=== PATIENT | male | born 1985 | race Caucasian/White ===

== ENCOUNTER → 2018-04-27 | Outpatient (CLI) | payer BC ==
[2018-04-27 10:55] LABS: Basophils # (A) 0.1 k/uL (0-0.2); Basophils % (A) 1 %; Eosinophils # (A) 0.2 k/uL (0-0.7); Eosinophils % (A) 4 %; HCT 44.8 % (39.0-53.0); HGB 13.8 gm/dL (13.0-17.5); Lymphocytes # (A) 1.6 k/uL (1.0-4.8); Lymphocytes % (A) 37 %; MCH 29.2 pg (25.0-35.0); MCHC 30.8 g/dL (31.0-37.0); MCV 94.6 fL (80.0-100.0); Mean Platelet Volume 6.8; Monocytes # (A) 0.3 k/uL (0-1.0); Monocytes % (A) 7 %; Neutrophils % (A) 48 %; Platelet Count 319 k/uL (150-450); RBC 4.74 m/uL (4.30-5.90); RDW 13.1 % (11.5-15.5); WBC 4.3 k/uL (3.8-10.6)
[2018-04-27 11:04] LABS: ALT 33 U/L (21-72); AST 23 U/L (17-59); Albumin 4.2 g/dL (3.5-5.0); Alkaline Phosphatase 57 U/L (38-126); Anion Gap 7 mmol/L; Blood Urea Nitrogen 14 mg/dL (9-20); Calcium 9.5 mg/dL (8.4-10.2); Carbon Dioxide 23 mmol/L (22-30); Chloride 112 mmol/L (98-107); Cholesterol 153 mg/dL (<200); Glucose 90 mg/dL (74-99); HDL Cholesterol 71 mg/dL (40-60); LDL Cholesterol,Calculated 68 mg/dL (0-99); Potassium 4.4 mmol/L (3.5-5.1); Sodium 142 mmol/L (137-145); Total Bilirubin 0.4 mg/dL (0.2-1.3); Total Protein 7.1 g/dL (6.3-8.2); Triglycerides 68 mg/dL (<150)
[2018-04-27 11:19] LABS: T4, Free (Free Thyroxine) 0.65 ng/dL (0.78-2.19)
== END | disposition home or self-care (01) ==
LOC: LABWHC1 10:09
PROVIDERS: ATTEND Family Medicine
DX: Z00.00 Encounter for general adult medical examination without abnormal findings (principal); E78.5 Hyperlipidemia, unspecified
CPT/HCPCS: 36415; 80053; 80061; 84439; 84443; 85025

== ENCOUNTER 2022-08-28 03:59 | Inpatient (IN) | payer BC ==
[2022-08-28] MEDS ORDERED: ONDANSETRON 4 MG/2 ML VIAL IVP STA (05:07)
[2022-08-28] MEDS ORDERED: SODIUM CHLORIDE 0.9% 1,000 ML IV ONE (05:07)
[2022-08-28] MEDS ORDERED: MORPHINE SULFATE 4 MG/ML SYRINGE IVP STA (05:07)
[2022-08-28 05:30] LABS: Basophils # (A) 0.1 k/uL (0-0.2); Basophils % (A) 2 %; Eosinophils # (A) 0.1 k/uL (0-0.7); Eosinophils % (A) 2 %; HCT 44.9 % (39.0-53.0); Lymphocytes # (A) 3.3 k/uL (1.0-4.8); Lymphocytes % (A) 46 %; MCH 30.5 pg (25.0-35.0); MCHC 33.4 g/dL (31.0-37.0); MCV 91.4 fL (80.0-100.0); Mean Platelet Volume 9.2; Monocytes # (A) 0.3 k/uL (0-1.0); Monocytes % (A) 5 %; Neutrophils # (A) 3.1 k/uL (1.3-7.7); Neutrophils % (A) 43 %; Platelet Count 315 k/uL (150-450); RBC 4.91 m/uL (4.30-5.90); RDW 12.9 % (11.5-15.5); WBC 7.2 k/uL (3.8-10.6)
[2022-08-28 05:33] LABS: Appearance,Urine Clear (Clear); Bacteria,Urine Rare /hpf; Bilirubin,Urine Negative (Negative); Blood,Urine Negative (Negative); Color,Urine Yellow; Glucose,Urine (UA) 1+ (Negative); Leukocyte Esterase,Urine Trace (Negative); Mucus,Urine Few /hpf; Nitrite,Urine Negative (Negative); Protein,Urine 1+ (Negative); RBC,Urine 1 /hpf (0-5); Specific Gravity,Urine 1.026 (1.001-1.035); Squamous Epithelial Cell,Urine <1 /hpf (0-4); Urobilinogen,Urine <2.0 mg/dL (<2.0); WBC,Urine 9 /hpf (0-5)
[2022-08-28 05:35] LABS: Amphetamine Screen,Urine Not Detected (NotDetected); Barbiturate Screen,Urine Not Detected (NotDetected); Benzodiazepines Screen,Urine Not Detected (NotDetected); Cocaine Screen,Urine Not Detected (NotDetected); Methadone Screen, Urine Not Detected (NotDetected); Opiate Screen,Urine Not Detected (NotDetected); Oxycodone Screen, Urine Not Detected (NotDetected); Phencyclidine Screen,Urine Not Detected (NotDetected); Tricyclic Antidepressant,Urine Not Detected (NotDetected); Urn Cannabinoid Scrn Not Detected (NotDetected)
[2022-08-28 05:38] LABS: Ketones,Urine 2+ (Negative)
--- NOTE | 2022-08-28 05:41 | CT ---
EXAMINATION TYPE: CT abdomen pelvis w con DATE OF EXAM: 08/28/2022 COMPARISON: None. HISTORY: severe abd pain into back. CT DLP: 707.5 mGycm, Automated Exposure Control for Dose Reduction was Utilized. CONTRAST: CT scan of the abdomen and pelvis is performed without oral and with IV Contrast, patient injected wi th 100 mL of Isovue 300. FINDINGS: LUNG BASES: No significant abnormality is appreciated. LIVER/GB: Visualized liver is heterogeneously hypodense. PANCREAS: No significant abnormality is seen. SPLEEN: No significant abnormality is seen. ADRENALS: No significant abnormality is seen. KIDNEYS: No significant abnormality is seen. BOWEL: Slightly suboptimal evaluation due to lack of enteric contrast. No suspicious dilatation of th e stomach or duodenal sweep. There are prominent fluid-filled small bowel loops in the pelvis. No gre ater than 3.0 cm dilatation is seen. Fecal material is seen in nondistended colon. There is low lying cecum into the right pelvis coronal image 34. Terminal ileum appears within normal limits seen best coronal image 31. There is focal dilated small bowel loop measuring up to 5.5 cm axial image 41. [place] images show moderate central mesenteric fat stranding/fluid and swirling of mesenteric vessels. T here is suspected focal closed loop obstruction with nondilated bowel along the right inferior aspect of the bowel loop coronal image 32. No free or mesenteric air. PROSTATE/SEMINAL VESICLES: No gross abnormality seen. LYMPH NODES: No greater than 1cm abdominal or pelvic lymph nodes are appreciated. OSSEOUS STRUCTURES: No significant abnormality is seen. OTHER: No significant additional abnormality is seen. IMPRESSION: There is single focal dilated small bowel loop with air-fluid level. There is suspected c losed loop obstruction related to internal hernia. No free air currently. Advise surgical consultatio n. Results discussed with ER physician shortly after exam was completed.
[2022-08-28 05:42] LABS: ALT 20 U/L (4-49); AST 31 U/L (17-59); African American GFR (CKD) >90 (>60 ml/min/1.73 sqM); Albumin 4.6 g/dL (3.5-5.0); Alcohol <10 mg/dL; Alkaline Phosphatase 83 U/L (38-126); Anion Gap 13 mmol/L; Blood Urea Nitrogen 12 mg/dL (9-20); Calcium 9.6 mg/dL (8.4-10.2); Carbon Dioxide 19 mmol/L (22-30); Chloride 106 mmol/L (98-107); Glucose 185 mg/dL (74-99); Lipase 144 U/L (23-300); Magnesium 1.9 mg/dL (1.6-2.3); Non-African American GFR(CKD) >90 (>60 ml/min/1.73 sqM); Potassium 3.9 mmol/L (3.5-5.1); Sodium 138 mmol/L (137-145); Total Bilirubin 0.6 mg/dL (0.2-1.3); Total Protein 7.9 g/dL (6.3-8.2)
[2022-08-28] MEDS ORDERED: NALOXONE 0.4 MG/ML 1 ML VIAL IV PRN (05:55)
--- NOTE | 2022-08-28 05:57 | ED ---
General Adult HPI - General Chief complaint: Abdominal Pain Stated complaint: Abd Pain Time Seen by Provider: 08/28/22 04:08 Source: patient, family Mode of arrival: ambulatory Limitations: no limitations - History of Present Illness Initial comments: This is a 37-year-old male with no past medical history presents emergency department for acute abdominal pain. The patient stated this abdominal pain him from sleep and he has had continued sharp, stabbing pains in the middle abdomen. The patient reported associated nausea and vomiting as well as chills. The patient denied any trauma to the area as well. The patient denied any previous abdominal pain or any other similar episodes. The patient was in distress secondary to abdominal pain however denied any other acute symptoms at this time. - Related Data Home Medications Medication Instructions Recorded Confirmed No Known Home Medications 04/28/14 04/28/14 Allergies Allergy/AdvReac Type Severity Reaction Status Date / Time Penicillins Allergy Unknown Verified 08/28/22 04:07 Childhood Review of Systems ROS Statement: Those systems with pertinent positive or pertinent negative responses have been documented in the HPI. ROS Other: All systems not noted in ROS Statement are negative. Past Medical History Past Medical History: No Reported History History of Any Multi-Drug Resistant Organisms: None Reported Past Surgical History: No Surgical Hx Reported Past Psychological History: No Psychological Hx Reported Past Alcohol Use History: Occasional Past Drug Use History: None Reported General Exam Limitations: no limitations General appearance: in distress (Secondary to abdominal pain) Head exam: Present: atraumatic, normocephalic Eye exam: Present: normal appearance, PERRL Pupils: Present: normal accommodation ENT exam: Present: normal exam, normal oropharynx, mucous membranes moist Neck exam: Present: normal inspection, full ROM Respiratory exam: Present: normal lung sounds bilaterally Cardiovascular Exam: Present: regular rate, normal rhythm, normal heart sounds GI/Abdominal exam: Present: tenderness (Significant tenderness noted to the mid abdomen), diminished bowel sounds Extremities exam: Present: normal inspection, full ROM, normal capillary refill Back exam: Present: normal inspection, full ROM Neurological exam: Present: alert, oriented X3, CN II-XII intact Psychiatric exam: Present: agitated Skin exam: Present: warm, dry Course Vital Signs 08/28/22 08/28/22 08/28/22 04:03 04:15 04:21 Temperature 97.6 F 98 F Pulse Rate 53 L 56 L 57 L Respiratory 100 H 30 H Rate Blood Pressure 101/20 160/84 O2 Sat by Pulse 100 98 100 Oximetry 08/28/22 08/28/22 04:34 05:51 Temperature Pulse Rate 52 L Respiratory 22 Rate Blood Pressure 124/71 104/84 O2 Sat by Pulse 99 Oximetry EKG Findings - EKG Comments: EKG Findings:: An EKG was obtained and was interpreted by myself per Pre-op preparations. EKG showed a rate of 57, P arrival 137, QRS duration 100 and QTC of 522. This EKG was read as sinus bradycardia with a prolonged QT interval. There were no ST segment elevations or depressions noted. Medical Decision Making - Medical Decision Making Was pt. sent in by a medical professional or institution? @No Did you speak to anyone other than the patient for history? @The patient's mother Did you review nursing and triage notes? @Nursing triage notes were reviewed Were old charts reviewed? @No Differential Diagnosis? @Small bowel obstruction, pancreatitis, appendicitis, diverticulitis, urinary tract infection, gastroneuritis EKG interpreted by me (3pts min.)? @Per above X-rays interpreted by me (1pt min.)? @ [none] CT interpreted by me (1pt min.)? @CT of the abdomen and pelvis was obtained and was interpreted by myself. CT showed single focal dilated small bowel loop with air fluid level. His is a suspected closed loop obstruction related to an internal hernia. There is no free air currently. The radiologist did advise a surgical consult at this time. U/S interpreted by me (1pt. min.)? @ [none] What testing was considered but not performed? (CT, X-rays, U/S, labs)? Why? @Initially an abdominal series x-ray was considered however due to the patient's severe pain, a CT abdomen and pelvis was obtained instead What meds were considered but not given? Why? @ [none] Did you discuss the management of the patient with other professionals? @Yes, general surgeon systems applications programming lead, was contacted regarding the patient and the CT abdomen and pelvis findings. She did recommend an EKG for preop preparation, NG tube placement and make the patient nothing by mouth for planned surgical intervention later today. Did you reconcile home meds? @ [none] Was smoking cessation discussed for >3mins.? @ [none] Was critical care preformed (if so, how long)? @ [none] Were there social determinants of health that impacted care today? How? (Homelessness, low income, unemployed, alcoholism, drug addiction, transportation, low edu. Level, literacy, decrease access to med. care, snf, rehab)? @None Was there de-escalation of care discussed even if they declined? (Discuss DNR or withdrawal of care, Hospice)? @No What co-morbidities impacted this encounter? (DM, HTN, Smoking, COPD, CAD, Cancer, CVA, Hep., AIDS, mental health diagnosis, sleep apnea, morbid obesity)? @None Was patient admitted / discharged? @The patient continued to remain stable. The patient was in moderate distress secondary to abdominal pain. Labs workup was obtained and was largely within a limits. Computed tomography scan however showed a closed loop bowel obstruction secondary to an internal hernia. Due to this finding, the general surgeon on- call, Dr. Lamb was contacted regarding the patient and did accept the patient for admission 0550. The patient was given multiple doses of pain medications in the emergency department as well as fluids. The patient also had an EKG performed at an NG tube placed. The patient was made nothing by mouth. The patient was told of this result and the plan for admission and surgical intervention and was agreeable. The patient was admitted in stable condition. Undiagnosed new problem with uncertain prognosis? @ [none] Drug Therapy requiring intensive monitoring for toxicity (Heparin, Nitro, Insulin, Cardizem)? @ [none] Were any procedures done? @ [none] Diagnosis/symptom? @Closed loop bowel obstruction secondary to an internal hernia Acute, or Chronic, or Acute on Chronic? @Acute Uncomplicated (without systemic symptoms) or Complicated (systemic symptoms)? @Complicated Side effects of treatment? @ [none] Exacerbation, Progression, or Severe Exacerbation] @ [no] Poses a threat to life or bodily function? @Yes - Lab Data Result diagrams: 08/28/22 04:20 08/28/22 04:20 Lab Results 08/28/22 08/28/22 08/28/22 Range/Units 04:20 04:20 05:14 WBC 7.2 (3.8-10.6) k/uL RBC 4.91 (4.30-5.90) m/uL Hgb 15.0 (13.0-17.5) gm/dL Hct 44.9 (39.0-53.0) % MCV 91.4 (80.0-100.0) fL MCH 30.5 (25.0-35.0) pg MCHC 33.4 (31.0-37.0) g/dL RDW 12.9 (11.5-15.5) % Plt Count 315 (150-450) k/uL MPV 9.2 Neutrophils % 43 % Lymphocytes % 46 % Monocytes % 5 % Eosinophils % 2 % Basophils % 2 % Neutrophils # 3.1 (1.3-7.7) k/uL Lymphocytes # 3.3 (1.0-4.8) k/uL Monocytes # 0.3 (0-1.0) k/uL Eosinophils # 0.1 (0-0.7) k/uL Basophils # 0.1 (0-0.2) k/uL Sodium 138 (137-145) mmol/L Potassium 3.9 (3.5-5.1) mmol/L Chloride 106 (98-107) mmol/L Carbon Dioxide 19 L (22-30) mmol/L Anion Gap 13 mmol/L BUN 12 (9-20) mg/dL Creatinine 0.92 (0.66-1.25) mg/dL Est GFR (CKD-EPI)AfAm >90 (>60 ml/min/1.73 sqM) Est GFR (CKD-EPI)NonAf >90 (>60 ml/min/1.73 sqM) Glucose 185 H (74-99) mg/dL Calcium 9.6 (8.4-10.2) mg/dL Magnesium 1.9 (1.6-2.3) mg/dL Total Bilirubin 0.6 (0.2-1.3) mg/dL AST 31 (17-59) U/L ALT 20 (4-49) U/L Alkaline Phosphatase 83 (38-126) U/L Total Protein 7.9 (6.3-8.2) g/dL Albumin 4.6 (3.5-5.0) g/dL Lipase 144 (23-300) U/L Urine Color Yellow Urine Appearance Clear (Clear) Urine pH 6.0 (5.0-8.0) Ur Specific [place] 1.026 (1.001-1.035) Urine Protein 1+ H (Negative) Urine Glucose (UA) 1+ H (Negative) Urine Ketones 2+ H (Negative) Urine Blood Negative (Negative) Urine Nitrite Negative (Negative) Urine Bilirubin Negative (Negative) Urine Urobilinogen <2.0 (<2.0) mg/dL Ur Leukocyte Esterase Trace H (Negative) Urine RBC 1 (0-5) /hpf Urine WBC 9 H (0-5) /hpf Ur Squamous Epith Cells <1 (0-4) /hpf Urine Bacteria Rare H (None) /hpf Urine Mucus Few H (None) /hpf Urine Opiates Screen (NotDetected) Ur Oxycodone Screen (NotDetected) Urine Methadone Screen (NotDetected) Ur Propoxyphene Screen (NotDetected) Ur Barbiturates Screen (NotDetected) U Tricyclic Antidepress (NotDetected) Ur Phencyclidine Scrn (NotDetected) Ur Amphetamines Screen (NotDetected) U Methamphetamines Scrn (NotDetected) U Benzodiazepines Scrn (NotDetected) Urine Cocaine Screen (NotDetected) U Marijuana (THC) Screen (NotDetected) Serum Alcohol <10 mg/dL 08/28/22 Range/Units 05:14 WBC (3.8-10.6) k/uL RBC (4.30-5.90) m/uL Hgb (13.0-17.5) gm/dL Hct (39.0-53.0) % MCV (80.0-100.0) fL MCH (25.0-35.0) pg MCHC (31.0-37.0) g/dL RDW (11.5-15.5) % Plt Count (150-450) k/uL MPV Neutrophils % % Lymphocytes % % Monocytes % % Eosinophils % % Basophils % % Neutrophils # (1.3-7.7) k/uL Lymphocytes # (1.0-4.8) k/uL Monocytes # (0-1.0) k/uL Eosinophils # (0-0.7) k/uL Basophils # (0-0.2) k/uL Sodium (137-145) mmol/L Potassium (3.5-5.1) mmol/L Chloride (98-107) mmol/L Carbon Dioxide (22-30) mmol/L Anion Gap mmol/L BUN (9-20) mg/dL Creatinine (0.66-1.25) mg/dL Est GFR (CKD-EPI)AfAm (>60 ml/min/1.73 sqM) Est GFR (CKD-EPI)NonAf (>60 ml/min/1.73 sqM) Glucose (74-99) mg/dL Calcium (8.4-10.2) mg/dL Magnesium (1.6-2.3) mg/dL Total Bilirubin (0.2-1.3) mg/dL AST (17-59) U/L ALT (4-49) U/L Alkaline Phosphatase (38-126) U/L Total Protein (6.3-8.2) g/dL Albumin (3.5-5.0) g/dL Lipase (23-300) U/L Urine Color Urine Appearance (Clear) Urine pH (5.0-8.0) Ur Specific [place] (1.001-1.035) Urine Protein (Negative) Urine Glucose (UA) (Negative) Urine Ketones (Negative) Urine Blood (Negative) Urine Nitrite (Negative) Urine Bilirubin (Negative) Urine Urobilinogen (<2.0) mg/dL Ur Leukocyte Esterase (Negative) Urine RBC (0-5) /hpf Urine WBC (0-5) /hpf Ur Squamous Epith Cells (0-4) /hpf Urine Bacteria (None) /hpf Urine Mucus (None) /hpf Urine Opiates Screen Not Detected (NotDetected) Ur Oxycodone Screen Not Detected (NotDetected) Urine Methadone Screen Not Detected (NotDetected) Ur Propoxyphene Screen Not Detected (NotDetected) Ur Barbiturates Screen Not Detected (NotDetected) U Tricyclic Antidepress Not Detected (NotDetected) Ur Phencyclidine Scrn Not Detected (NotDetected) Ur Amphetamines Screen Not Detected (NotDetected) U Methamphetamines Scrn Not Detected (NotDetected) U Benzodiazepines Scrn Not Detected (NotDetected) Urine Cocaine Screen Not Detected (NotDetected) U Marijuana (THC) Screen Not Detected (NotDetected) Serum Alcohol mg/dL Disposition Clinical Impression: Bowel obstruction Disposition: ADMITTED IP TO THIS HOSP Condition: Stable Is patient prescribed a controlled substance at d/c from ED?: No Time of Disposition: 05:50 Decision to Admit Reason: Admit from EC Decision Date: 08/28/22 Decision Time: 05:50
[2022-08-28] MEDS: SODIUM CHLORIDE 0.9% 1,000 ML IV SCH ×2 (06:01→19:44)
[2022-08-28] MEDS: KETOROLAC 15 MG/ML 1 ML VIAL IVP SCH ×3 (06:11→20:38)
[2022-08-28] MEDS ORDERED: fentaNYL (PF) 50 MCG/ML 2 ML AMP IVP STA (06:12)
[2022-08-28] MEDS: ACETAMINOPHEN IV (For NPO) 1,000 MG in EMPTY BAG 1 BAG IVPB SCH ×2 (06:24→19:59)
[2022-08-28] MEDS: HYDROmorphone 1 MG/ML 1 ML SYRINGE IVP PRN ×4 (07:40→20:36)
[2022-08-28] MEDS: PANTOPRAZOLE 40 MG/10 ML VIAL IV SCH (11:44)
[2022-08-28] MEDS: HEPARIN SODIUM,PORCINE/PF 5,000 UNIT/0.5 ML SYRINGE SQ SCH ×3 (11:45→21:43)
--- NOTE | 2022-08-28 13:29 | P.GSHP ---
History of Present Illness H&P Date: 08/28/22 Patient reports being generally physically fit. Developed acute onset abdominal pain over 12 hours ago. Pain tolerable. Pain primarily mid abdomen to right lower quadrant. CT reviewed. Presence of internal hernia with small bowel obstruction, closed loop. Surgical intervention described for robotic reduction of internal hernia. Possibility of small bowel resection reviewed. Possible open technique described. Discontinue NG tube. Inpatient hospitalization described. Past Medical History Past Medical History: No Reported History History of Any Multi-Drug Resistant Organisms: None Reported Past Surgical History: No Surgical Hx Reported Additional Past Surgical History / Comment(s): [place] teeth extractions. Additional Past Anesthesia/Blood Transfusion Reaction / Comment(s): Pt has never had general or spinal anesthesia. Smoking Status: Vaper - Past Family History Mother Family Medical History: No Reported History Father Family Medical History: No Reported History Medications and Allergies Home Medications Medication Instructions Recorded Confirmed Type No Known Home Medications 04/28/14 08/28/22 History Allergies Allergy/AdvReac Type Severity Reaction Status Date / Time Penicillins Allergy Unknown Verified 08/28/22 08:37 Childhood Surgical - Exam Vital Signs Temp Pulse Resp BP Pulse Ox 97.6 F 53 L 100 H 101/20 100 08/28/22 04:03 08/28/22 04:03 08/28/22 04:03 08/28/22 04:03 08/28/22 04:03 Results - Labs 08/28/22 04:20 08/28/22 04:20 Abnormal Lab Results - Last 24 Hours (Table) 08/28/22 08/28/22 Range/Units 04:20 05:14 Carbon Dioxide 19 L (22-30) mmol/L Glucose 185 H (74-99) mg/dL Urine Protein 1+ H (Negative) Urine Glucose (UA) 1+ H (Negative) Urine Ketones 2+ H (Negative) Ur Leukocyte Esterase Trace H (Negative) Urine WBC 9 H (0-5) /hpf Urine Bacteria Rare H (None) /hpf Urine Mucus Few H (None) /hpf Diabetes panel 08/28/22 Range/Units 04:20 Sodium 138 (137-145) mmol/L Potassium 3.9 (3.5-5.1) mmol/L Chloride 106 (98-107) mmol/L Carbon Dioxide 19 L (22-30) mmol/L BUN 12 (9-20) mg/dL Creatinine 0.92 (0.66-1.25) mg/dL Glucose 185 H (74-99) mg/dL Calcium 9.6 (8.4-10.2) mg/dL AST 31 (17-59) U/L ALT 20 (4-49) U/L Alkaline Phosphatase 83 (38-126) U/L Total Protein 7.9 (6.3-8.2) g/dL Albumin 4.6 (3.5-5.0) g/dL Calcium panel 08/28/22 Range/Units 04:20 Calcium 9.6 (8.4-10.2) mg/dL Albumin 4.6 (3.5-5.0) g/dL Pituitary panel 08/28/22 Range/Units 04:20 Sodium 138 (137-145) mmol/L Potassium 3.9 (3.5-5.1) mmol/L Chloride 106 (98-107) mmol/L Carbon Dioxide 19 L (22-30) mmol/L BUN 12 (9-20) mg/dL Creatinine 0.92 (0.66-1.25) mg/dL Glucose 185 H (74-99) mg/dL Calcium 9.6 (8.4-10.2) mg/dL Adrenal panel 08/28/22 Range/Units 04:20 Sodium 138 (137-145) mmol/L Potassium 3.9 (3.5-5.1) mmol/L Chloride 106 (98-107) mmol/L Carbon Dioxide 19 L (22-30) mmol/L BUN 12 (9-20) mg/dL Creatinine 0.92 (0.66-1.25) mg/dL Glucose 185 H (74-99) mg/dL Calcium 9.6 (8.4-10.2) mg/dL Total Bilirubin 0.6 (0.2-1.3) mg/dL AST 31 (17-59) U/L ALT 20 (4-49) U/L Alkaline Phosphatase 83 (38-126) U/L Total Protein 7.9 (6.3-8.2) g/dL Albumin 4.6 (3.5-5.0) g/dL
[2022-08-28] MEDS ORDERED: MIDAZOLAM 2 MG/2 ML VIAL ONE (21:42)
[2022-08-28] MEDS ORDERED: fentaNYL (PF) 50 MCG/ML 2 ML AMP ONE (21:42)
[2022-08-28] MEDS ORDERED: ALBUMIN HUMAN 5% (25gm) 500 ML VIAL IVPB ONE (21:42)
[2022-08-28] MEDS ORDERED: LIDOCAINE 2% INJ 20 MG/ML (2 ML VIAL) ONE (21:42)
[2022-08-28] MEDS ORDERED: PHENYLEPHRINE-0.9% NACL SYG 1,000 MCG/10 ML SYRINGE ONE (21:42)
[2022-08-28] MEDS ORDERED: SUCCINYLCHOLINE CHLORIDE 200 MG/10 ML VIAL IV ONE (21:42)
[2022-08-28] MEDS ORDERED: PROPOFOL 10 MG/ML 20 ML VIAL IV ONE (21:42)
[2022-08-28] MEDS ORDERED: KETAMINE 10 MG/ML 20 ML VIAL ONE (21:42)
[2022-08-28] MEDS ORDERED: NEOSTIGMINE 1 MG/ML 10 ML VIAL ONE (21:42)
[2022-08-28] MEDS ORDERED: ONDANSETRON 4 MG/2 ML VIAL ONE (21:42)
[2022-08-28] MEDS ORDERED: ROCURONIUM 10 MG/ML (5 ML VIAL) IV ONE (21:42)
[2022-08-28] MEDS ORDERED: LIDOCAINE 4% LTA KIT (4 ML) TOPICAL ONE (21:42)
[2022-08-28] MEDS ORDERED: GLYCOPYRROLATE 0.2 MG/ML 2 ML VIAL ONE (21:42)
[2022-08-28] MEDS ORDERED: SODIUM CHLORIDE 0.9% 50 ML with ceFAZolin 2,000 MG IV ONE ×2 (21:55)
[2022-08-28] MEDS ORDERED: LACTATED RINGERS 1,000 ML IV ONE ×2 (22:12→23:04)
[2022-08-28] MEDS ORDERED: BUPIVACAIN-EPI 0.25%-1:200,000 30 ML VIAL SQ ONE (22:12)
[2022-08-29] MEDS ORDERED: NALOXONE 0.4 MG/ML 1 ML VIAL IV PRN (00:14)
[2022-08-29] MEDS ORDERED: SODIUM CHLORIDE 0.9% 2,000 ML IV ONE ×2 (00:16→11:38)
[2022-08-29] MEDS ORDERED: ONDANSETRON 4 MG/2 ML VIAL IVP PRN (00:20)
--- NOTE | 2022-08-29 00:29 | P.OP ---
Date of Procedure: 08/29/22 Description of Procedure: SURGEON: PEPE CHANEL MD DISPLAY DECORATOR: NONE. PREOPERATIVE DIAGNOSIS: 1. Closed loop small bowel obstruction, abnormal computed tomography scan POSTOPERATIVE DIAGNOSIS: 1. Closed loop small bowel obstruction, abnormal computed tomography scan 2. Hemoperitoneum with peritonitis 3. Small bowel ischemia 4. Small bowel volvulus due to Meckel's diverticulum 5. Meckel's diverticulum necrosis OPERATION: 1. Diagnostic laparoscopy converted to open exploratory laparotomy for reduction of small bowel volvulus 2. Drainage of hemoperitoneum 2.5 L 3. Small bowel resection, Meckel's diverticulum 4. Peritoneal lavage 3 L normal saline 5. Application of 20 cm PREVENA incisional wound VAC system ANESTHESIA: General with epidural. ESTIMATED BLOOD LOSS: 50 mL SPECIMENS REMOVED: Aerobic and anaerobic culture peritoneal fluid CONDITION: Stable. DISPOSITION: To the Floor. COMPLICATIONS: None. OPERATIVE FINDINGS: 1. Diagnostic laparoscopy performed with necrotic bowel epigastrium and hemoperitoneum necessitating open technique 2. Small bowel ischemia 180 cm proximal to ileocecal valve 3. Necrosis of Meckel's diverticulum at 50 cm proximal to ileocecal valve 4. Dilated cystic Meckel's diverticulum 10 x 15 cm with necrosis resected for small bowel resection using 60 mm quevedo load 5. Small bowel volvulus along ileum mesentery reduced with incarceration due to large cystic Meckel's diverticulum causing internal hernia 6. Small bowel viable with peristalsis and perfused confirmed using indocyanine green INDICATIONS: The patient is a 37-year-old male who presents acutely with generalized abdominal pain rating to his back. Abnormal computed tomography scan demonstrated closed loop obstruction with internal hernia. Emergency surgical intervention was described with diagnostic laparoscopy possible lysis of adhesions including possible bowel resection and open technique. Benefits and risks of the procedures were discussed. Informed consent was obtained. DESCRIPTION: The patient was brought to the operating room. An epidural was placed per anesthesia. After general induction, a Kirk catheter was placed. The abdomen was prepped and draped in standard sterile fashion. Ioban draping was also placed. Prior to incision, a timeout protocol was confirmed with surgical team regarding patient's name including procedures to be performed. Preoperative medications were confirmed. A #10 blade was used to enter along the epigastrium and extended down to the pubis. Carefully the abdomen was entered using electro- Bovie cautery. Immediate foamy intra-abdominal purulence was aspirated from the abdomen over 100 mL. Fibrinous exudate was found throughout the small bowel especially of the upper abdomen. To further explore the abdomen, the abdomen was irrigated with 4 L of warm normal saline solution until the aspirant was clear. Aerobic and anaerobic cultures were obtained of the peritoneal fluid prior to irrigation and sent for cultures. The small bowel was decompressed. The cecum was redundant with the appendix intact and extended deep into her pelvis. The entire colon was full of soft stool with exception of hard stool in the rectum palpated. The gallbladder was distended. No internal hernia such as Avila defect or jejunojejunostomy defect were identified. Next, the Harris limb was followed to the gastrojejunal anastomosis were along the left lateral posterior aspect, 1 cm defect was found with enteric content emanating from the perforation. No signs of peritoneal studding was identified or sign of malignancy. The mucosa within the gastric pouch was found emanating through the ulcer as well. The ulcer was oversewn using 3-0 Polysorb with imbrication. A 2 layer closure was performed with serosa to serosa bites. A lesser omental patch was placed to reinforce the closure and incorporated into the suture line. The repair was submerged in normal saline. I went to the head of bed to perform intraoperative esophagogastroduodenoscopy. Olympus gastroscope was passed along the posterior oropharynx into the distal esophagus and into the gastric pouch with insufflation. The Harris limb was intubated at 60 cm from the gum line. Intraoperative endoscopy pictures were obtained confirming complete closure of the perforated gastrojejunal ulcer. No air bubbles or leak was identified confirming complete closure of the defect. I re-scrubbed into case. Additional 3 L normal saline was used to completely irrigate the abdomen until the aspirant was clear. #19 SARAH BETH drain was placed anterior to the repair of gastrojejunal anastomosis. The SARAH BETH drain exited via the left upper quadrant and sewn in using 2-0 nylon. A separate drain was place into the pelvis and exited via the right lower quadrant and also tacked using 2- 0 nylon. SARAH BETH bulbs were attached to negative suction. Hemostasis was excellent throughout the case. The abdomen was closed using double stranded 0 PDS. The skin was cleansed using dilute hydrogen peroxide. A 20-cm PREVENA incisional wound VAC dressing was placed with intact seal. At the end of the procedure, needle, sponge, and instrument count had been verified correct by the surgical instrument maker. The patient was sent to the postanesthesia care unit extubated and in stable condition. Intraoperative findings were discussed with her daughter Alana over the telephone including repair of her perforated ulcer, placement of drains, and extubation. She was overall pleased with level of care.
[2022-08-29] MEDS ORDERED: SCOPOLAMINE 1 MG/72 HR PATCH TRANSDERM ONE (00:30)
[2022-08-29] MEDS ORDERED: HYDROmorphone 0.5 MG/0.5 ML SYRINGE IVP ONE (00:34)
[2022-08-29] MEDS: metroNIDAZOLE-NS PMX 500 MG in SALINE 1 100ML.BAG IVPB SCH ×4 (01:26→18:18)
[2022-08-29] MEDS: KETOROLAC 15 MG/ML 1 ML VIAL IVP SCH ×4 (01:28→18:17)
[2022-08-29] MEDS: ACETAMINOPHEN IV (For NPO) 1,000 MG in EMPTY BAG 1 BAG IVPB SCH ×6 (01:37→23:29)
[2022-08-29] MEDS: SODIUM CHLORIDE 0.9% 1,000 ML IV SCH ×4 (01:48→18:35)
[2022-08-29] MEDS: LEVOFLOXACIN 500MG-D5W PMX 500 MG in DEXTROSE/WATER 1 100ML.BAG IVPB SCH (02:52)
[2022-08-29] MEDS: HYDROmorphone 1 MG/ML 1 ML SYRINGE IVP PRN (04:31)
[2022-08-29] MEDS: PANTOPRAZOLE 40 MG/10 ML VIAL IV SCH (08:42)
[2022-08-29] MEDS: HEPARIN SODIUM,PORCINE/PF 5,000 UNIT/0.5 ML SYRINGE SQ SCH ×2 (08:42→22:53)
[2022-08-29] MEDS: fentaNYL PCA 500 MCG/50 ML BAG IV PRN (09:56)
[2022-08-29 10:15] LABS: HCT 46.7 % (39.0-53.0); MCH 30.4 pg (25.0-35.0); MCHC 32.1 g/dL (31.0-37.0); MCV 94.7 fL (80.0-100.0); Mean Platelet Volume 8.2; Platelet Count 232 k/uL (150-450); RBC 4.94 m/uL (4.30-5.90); WBC 3.1 k/uL (3.8-10.6)
[2022-08-29 10:33] LABS: ALT 13 U/L (4-49); AST 23 U/L (17-59); African American GFR (CKD) >90 (>60 ml/min/1.73 sqM); Albumin 2.8 g/dL (3.5-5.0); Albumin/Globulin Ratio 1.2; Alkaline Phosphatase 29 U/L (38-126); Anion Gap 2 mmol/L; Blood Urea Nitrogen 17 mg/dL (9-20); Calcium 7.8 mg/dL (8.4-10.2); Carbon Dioxide 21 mmol/L (22-30); Chloride 114 mmol/L (98-107); Globulin 2.3 g/dL; Glucose 112 mg/dL (74-99); Non-African American GFR(CKD) >90 (>60 ml/min/1.73 sqM); Potassium 4.6 mmol/L (3.5-5.1); Sodium 137 mmol/L (137-145); Total Bilirubin 1.8 mg/dL (0.2-1.3); Total Protein 5.1 g/dL (6.3-8.2)
[2022-08-29 11:04] LABS: Band Neutrophils % 9 %; Eosinophils # (M) 0.03 k/uL (0-0.7); Lymphocytes # (M) 0.25 k/uL (1.0-4.8); Monocytes # (M) 0.31 k/uL (0-1.0); Neutrophils % (M) 72 %; Nucleated Red Blood Cells 0 /100 WBC (0-0); Total Cells Counted 100
--- NOTE | 2022-08-29 11:44 | P.PN ---
Subjective Progress Note Date: 08/29/22 CHIEF COMPLAINT: Closed loop obstruction due to Meckel's diverticulum HISTORY OF PRESENT ILLNESS: The patient is a 37-year-old male status post small bowel resection of Meckel's diverticulum with closed loop obstruction and small bowel infarction. Patient reports prior back pain and abdominal pain moderately improved. No reports of nausea vomiting. ROS: No reports of nausea and vomiting. No bowel movements. No fevers or chills. No new chest pain. No productive sputum. No flatus. PHYSICAL EXAM: VITAL SIGNS: Reviewed CONSTITUTIONAL: Well developed and in no acute distress. EYES: Conjuctivae without sclera icterus. Extraocular movements grossly intact. HEAD, EARS, NOSE, THROAT: Moist buccal mucosa. Head is atraumatic, normocephalic. Hears conversational speech. No nasal drainage. NG tube present minimal output. RESPIRATORY: Non-labored respirations and equal bilateral excursions. CARDIOVASCULAR: Palpable 2+ radial pulses. ABDOMEN: Incisional wound VAC dressing intact. MUSCULOSKELETAL: No gross deformity of the lower extremities noted. No clubbing. No cyanosis. SKIN: Good skin turgor. Well perfused. NEUROLOGIC: Cranial nerves II through XII grossly intact. No focal or lateralizing signs. PSYCH: Appropriate affect. Alert and oriented to person, place and time. CLINICAL LABS: Reviewed. CBC within normal limits. ASSESSMENT: 1. Small bowel infarction of Meckel's diverticulum due to close loop obstruction 2. Hemorrhagic ascites 2.5 L with peritonitis 3. Dehydration PLAN: 1. May have clear liquid diet with nasogastric tube 2. Ambulation encouraged. Heparin 5000 twice daily. 3. Incentive spirometer for pulmonary toilet 4. Discussion with patient and mother includes expected hospitalization for 7- 10 days pending bowel resumption of function 5. Patient and family discussed coverage this weekend provided by covering surgeon 6. Levofloxacin and Flagyl for peritonitis of the abdomen with cultures obtained 7. 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 IV fluid bolus due to severe third spacing of hemorrhagic ascites over 2.5 L with dehydration Objective - Vital Signs Vital signs: Vital Signs Temp 98.3 F 08/29/22 07:24 Pulse 68 08/29/22 07:24 Resp 18 08/29/22 07:24 BP 101/66 08/29/22 07:24 Pulse Ox 96 08/29/22 07:24 FiO2 Intake & Output 08/28/22 08/29/22 08/29/22 18:59 06:59 18:59 Intake Total 4340 Output Total 250 Balance 4090 Weight 301 kg 78.1 kg Intake: IV 1550 Intake, IV Titration 2790 Amount ACETAMINOPHEN IV (For NPO 200 ) 1,000 mg In Empty Bag 1 bag @ 400 mls/hr IVPB Q6HR [facility] Rx#:[id number] Levofloxacin 500Mg-D5w 100 Pmx 500 mg In Dextrose/ Water 1 100ml.bag @ 100 mls/hr IVPB Q24H [facility] Rx#: [id number] Sodium Chloride 0.9% 1, 390 000 ml @ 130 mls/hr IV . Q7H42M [facility] Rx#:[id number] Sodium Chloride 0.9% 2, 2000 000 ml @ 999 mls/hr IV . Q2H1M [facility] Rx#:[id number] metroNIDAZOLE-NS PMX 500 100 mg In Saline 1 100ml.bag @ 100 mls/hr IVPB Q6HR [facility] Rx#:[id number] Output: Urine 200 Estimated Blood Loss 50 Other: Voiding Method Indwelling Catheter - Labs CBC & Chem 7: 08/29/22 09:58 08/29/22 09:58 Labs: Abnormal Lab Results - Last 24 Hours (Table) 08/29/22 08/29/22 Range/Units 09:58 09:58 WBC 3.1 L (3.8-10.6) k/uL Lymphocytes # (Manual) 0.25 L (1.0-4.8) k/uL Chloride 114 H (98-107) mmol/L Carbon Dioxide 21 L (22-30) mmol/L Glucose 112 H (74-99) mg/dL Calcium 7.8 L (8.4-10.2) mg/dL Total Bilirubin 1.8 H (0.2-1.3) mg/dL Alkaline Phosphatase 29 L (38-126) U/L Total Protein 5.1 L (6.3-8.2) g/dL Albumin 2.8 L (3.5-5.0) g/dL
[2022-08-29] MEDS: fentaNYL PCA 500 MCG/50 ML BAG IV SCH ×2 (12:03→22:08)
--- NOTE | 2022-08-29 21:44 | CONS ---
CONSULTATION REASON FOR CONSULTATION: Advice regarding abnormal labs and other medical issues requested by surgery. HISTORY OF PRESENT ILLNESS: This is a 37-year-old gentleman with a past medical history of no significant medical issues, admitted with abdominal symptoms. The patient underwent a diagnostic laparoscopy converted to an open exploratory laparotomy and reduction of small-bowel volvulus by Dr. Lamb. A Meckel's diverticulum was suspected. There is no history of any fever, rigors, or chills. The patient's white count is found to be 3.1. PAST MEDICAL HISTORY: History of wisdom tooth extraction. No history of any cardiorespiratory illness. HOME MEDICATIONS: Reviewed, none. ALLERGIES: Penicillin. FAMILY HISTORY: No history of heart disease or strokes in the family. SOCIAL HISTORY: History of vaping. REVIEW OF SYSTEMS: A 14-point review is negative as mentioned earlier. PHYSICAL EXAMINATION: VITAL SIGNS: Pulse is 68, blood pressure 101/60, respirations 18. HEENT: Conjunctivae normal. NECK: No JVD. CARDIOVASCULAR: S1, S2 muffled. RESPIRATIONS: Breath sounds diffuse. ABDOMEN: Soft status post surgery. LEGS: No edema. NERVOUS SYSTEM: No focal deficits. SKIN: No ulcer, rash, bleeding. JOINTS: No active deforming arthropathy. LABS: WBC 3.1, sodium 137, potassium 4.7. ASSESSMENT: 1. Status post exploratory laparotomy for reduction of small-bowel volvulus and Meckel's diverticulum. 2. Mild leukopenia. 3. History of vaping. RECOMMENDATIONS: This is a 37-year-old gentleman who presented after surgery. At this time, the patient is medically stable. I would recommend to continue with DVT prophylaxis, incentive spirometry, proton pump inhibitors. Repeat labs. The followup of mild leukopenia can be arranged outpatient. Otherwise, we will follow the patient closely. Thank you for letting us participate in this patient's care. MMODL / IJN: [id number] /
[2022-08-30] MEDS: KETOROLAC 15 MG/ML 1 ML VIAL IVP SCH (02:34)
[2022-08-30] MEDS: metroNIDAZOLE-NS PMX 500 MG in SALINE 1 100ML.BAG IVPB SCH ×4 (02:37→17:34)
[2022-08-30] MEDS: LEVOFLOXACIN 500MG-D5W PMX 500 MG in DEXTROSE/WATER 1 100ML.BAG IVPB SCH (04:36)
[2022-08-30] MEDS: ACETAMINOPHEN IV (For NPO) 1,000 MG in EMPTY BAG 1 BAG IVPB SCH ×4 (06:06→22:18)
[2022-08-30] MEDS: SODIUM CHLORIDE 0.9% 1,000 ML IV SCH ×2 (08:38→17:34)
[2022-08-30] MEDS: HEPARIN SODIUM,PORCINE/PF 5,000 UNIT/0.5 ML SYRINGE SQ SCH ×2 (08:38→22:21)
[2022-08-30] MEDS: fentaNYL PCA 500 MCG/50 ML BAG IV SCH (09:41)
[2022-08-30] MEDS: PANTOPRAZOLE 40 MG/10 ML VIAL IV SCH (09:50)
[2022-08-30 11:23] LABS: Basophils # (A) 0.04 X 10*3/uL (0.00-0.10); Basophils % (A) 0.8 %; Eosinophils # (A) 0 X 10*3/uL (0.04-0.35); Eosinophils % (A) 0 %; HCT 38.8 % (39.6-50.0); HGB 12.3 g/dL (13.0-17.0); Immature Grans, Automated 0.4 %; Lymphocytes # (A) 0.37 X 10*3/uL (0.90-5.00); Lymphocytes % (A) 7.5 %; MCH 30.2 pg (27.0-32.0); MCHC 31.7 g/dL (32.0-37.0); MCV 95.3 fL (80.0-97.0); Mean Platelet Volume 10.9 fL (9.5-12.2); Monocytes # (A) 0.51 X 10*3/uL (0.20-1.00); Monocytes % (A) 10.3 %; NRBC Per 100 WBC 0 /100 WBCS (0.0-0.0); Neutrophils # (A) 3.99 X 10*3/uL (1.80-7.70); Platelet Count 221 X 10*3/uL (140-440); RBC 4.07 X 10*6/uL (4.40-5.60); RBC Morphology NORMAL; WBC 4.93 X 10*3/uL (4.50-10.00)
[2022-08-30 11:41] LABS: African American GFR (CKD) 121.6 (60.0-200.0); Anion Gap 8.4 mmol/L (10.00-18.00); BUN/Creat Ratio 16.81 Ratio (12.00-20.00); Blood Urea Nitrogen 15.4 mg/dL (9.0-27.0); Calcium 7.9 mg/dL (8.7-10.3); Carbon Dioxide 19.5 mmol/L (20.0-27.5); Potassium 4.1 mmol/L (3.5-5.5)
--- NOTE | 2022-08-30 12:48 | P.PN ---
Progress Note - Text Progress Note Date: 08/30/22 The patient is sitting in a chair. He has minimal pain. He has had no significant bowel function. On exam vital signs are stable. Abdomen soft. Incisions clean dry intact. Status post small bowel resection for closed loop bowel obstruction. Patient will continue NG tube. We will start diet once his bowel function has returned.
[2022-08-30] MEDS ORDERED: SODIUM CHLORIDE 0.9% 1,000 ML IV ONE (15:41)
[2022-08-31] MEDS: metroNIDAZOLE-NS PMX 500 MG in SALINE 1 100ML.BAG IVPB SCH ×5 (00:53→23:55)
[2022-08-31] MEDS: LEVOFLOXACIN 500MG-D5W PMX 500 MG in DEXTROSE/WATER 1 100ML.BAG IVPB SCH (02:26)
[2022-08-31] MEDS: fentaNYL PCA 500 MCG/50 ML BAG IV PRN (04:00)
[2022-08-31] MEDS: ACETAMINOPHEN IV (For NPO) 1,000 MG in EMPTY BAG 1 BAG IVPB SCH ×4 (04:14→20:41)
[2022-08-31] MEDS: PANTOPRAZOLE 40 MG/10 ML VIAL IV SCH (09:07)
[2022-08-31] MEDS: HEPARIN SODIUM,PORCINE/PF 5,000 UNIT/0.5 ML SYRINGE SQ SCH ×2 (09:08→20:41)
[2022-08-31 09:38] LABS: African American GFR (CKD) 130.4 (60.0-200.0); Albumin 2.8 g/dL (3.8-4.9); Albumin/Globulin Ratio 1.56 (1.60-3.17); Anion Gap 6.2 mmol/L (10.00-18.00); BUN/Creat Ratio 21.75 Ratio (12.00-20.00); Blood Urea Nitrogen 17.4 mg/dL (9.0-27.0); Carbon Dioxide 21.8 mmol/L (20.0-27.5); Globulin 1.8 g/dL (1.6-3.3); Non-African American GFR(CKD) 112.5 (60.0-200.0); Potassium 4.2 mmol/L (3.5-5.5); Total Bilirubin 0.4 mg/dL (0.30-1.20); Total Protein 4.6 g/dL (6.2-8.2)
[2022-08-31 09:39] LABS: HCT 34.3 % (39.6-50.0); HGB 11.2 g/dL (13.0-17.0); MCHC 32.7 g/dL (32.0-37.0); Mean Platelet Volume 10.6 fL (9.5-12.2); NRBC Per 100 WBC 0 /100 WBCS (0.0-0.0); Platelet Count 189 X 10*3/uL (140-440); RBC 3.73 X 10*6/uL (4.40-5.60); RDW 14.1 % (11.5-14.5); WBC 4.62 X 10*3/uL (4.50-10.00)
[2022-08-31 10:23] LABS: Basophils # (A) 0.01 X 10*3/uL (0.00-0.10); Basophils % (A) 0.2 %; Eosinophils # (A) 0.04 X 10*3/uL (0.04-0.35); Eosinophils % (A) 0.9 %; Immature Grans, Automated 0.4 %; Lymphocytes # (A) 0.57 X 10*3/uL (0.90-5.00); Lymphocytes % (A) 12.3 %; Monocytes % (A) 10.8 %; Neutrophils # (A) 3.48 X 10*3/uL (1.80-7.70); Neutrophils % (A) 75.4 %; RBC Morphology NORMAL
--- NOTE | 2022-08-31 12:10 | P.PN ---
Progress Note - Text Progress Note Date: 08/31/22 The patient has had flatus. On exam his vital signs are stable. Abdomen soft. Incisions clean and intact. Status post small bowel resection due to closed loop internal hernia. Patient lives nasogastric tube removed. We'll start full liquid diet.
[2022-08-31] MEDS: SODIUM CHLORIDE 0.9% 1,000 ML IV SCH (12:53)
--- NOTE | 2022-08-31 16:58 | PN ---
PROGRESS NOTE DATE OF SERVICE: 08/30/2022 SUBJECTIVE: This is a 37-year-old gentleman, who was admitted after exploratory laparotomy, had some mild leukopenia. No chest pain. No palpitations. No fever. OBJECTIVE: VITAL SIGNS: Pulse 59, blood pressure 110/68, respirations 17. CHEST: Clear to auscultation. CARDIOVASCULAR: S1 and S2. ABDOMEN: Soft. Status post surgery. LABORATORY DATA: Reviewed. Hemoglobin 12.3. The rest of the labs are reviewed. ASSESSMENT: 1. Status post exploratory laparotomy and reduction of the small bowel volvulus and Meckel's diverticulum. 2. History of vaping. RECOMMENDATIONS: Recommend to continue current medications. Recommend incentive spirometry and DVT prophylaxis. Repeat labs. Closely follow with Surgery. Further recommendations to follow. Symptomatic treatment. MMODL / IJN: [id number] /
[2022-08-31] MEDS: fentaNYL PCA 500 MCG/50 ML BAG IV SCH (17:40)
[2022-09-01] MEDS: LEVOFLOXACIN 500MG-D5W PMX 500 MG in DEXTROSE/WATER 1 100ML.BAG IVPB SCH (01:17)
[2022-09-01] MEDS: SODIUM CHLORIDE 0.9% 1,000 ML IV SCH ×5 (02:10→16:34)
[2022-09-01] MEDS: ACETAMINOPHEN IV (For NPO) 1,000 MG in EMPTY BAG 1 BAG IVPB SCH ×4 (03:26→20:19)
--- NOTE | 2022-09-01 03:34 | PN ---
PROGRESS NOTE DATE OF SERVICE: 08/31/2022 SUBJECTIVE: This is a 37-year-old gentleman who was admitted after abdominal surgery for small bowel volvulus as well as Meckel diverticulum. He is complaining of severe abdominal pain. No chest pain. No palpitations. No fever. OBJECTIVE: VITAL SIGNS: Pulse is 76, blood pressure 119/70, respirations 16. HEENT: Conjunctivae normal. CARDIOVASCULAR: S1 and S2 present. RESPIRATIONS: Breath sounds diminished. ABDOMEN: Soft. Status post surgery. LEGS: No edema. NERVOUS SYSTEM: No focal deficit. LABORATORY DATA: WBC 4.2, hemoglobin 11.2. Rest of the labs are noted. ASSESSMENT: 1. Status post exploratory laparotomy for reduction of small bowel volvulus and Meckel diverticulum. 2. Postoperative pain. 3. Leukopenia. 4. History of vaping. RECOMMENDATIONS: Continue current medications, symptomatic treatment, otherwise incentive spirometry. DVT prophylaxis. Further recommendations to follow. See orders for details. MMODL / IJN: [id number] /
[2022-09-01] MEDS: metroNIDAZOLE-NS PMX 500 MG in SALINE 1 100ML.BAG IVPB SCH ×3 (05:09→17:54)
[2022-09-01] MEDS: PANTOPRAZOLE 40 MG/10 ML VIAL IV SCH (08:28)
[2022-09-01] MEDS: HEPARIN SODIUM,PORCINE/PF 5,000 UNIT/0.5 ML SYRINGE SQ SCH ×2 (08:28→20:18)
[2022-09-01] MEDS: fentaNYL PCA 500 MCG/50 ML BAG IV SCH (08:29)
[2022-09-01 09:09] LABS: Basophils # (A) 0.02 X 10*3/uL (0.00-0.10); Basophils % (A) 0.3 %; Eosinophils # (A) 0.07 X 10*3/uL (0.04-0.35); Eosinophils % (A) 1.2 %; HCT 35.2 % (39.6-50.0); HGB 11.1 g/dL (13.0-17.0); Immature Grans, Automated 0.9 %; Lymphocytes # (A) 0.73 X 10*3/uL (0.90-5.00); Lymphocytes % (A) 12.7 %; MCH 29.9 pg (27.0-32.0); MCHC 31.5 g/dL (32.0-37.0); MCV 94.9 fL (80.0-97.0); Mean Platelet Volume 10.5 fL (9.5-12.2); Monocytes # (A) 0.46 X 10*3/uL (0.20-1.00); NRBC Per 100 WBC 0 /100 WBCS (0.0-0.0); Neutrophils # (A) 4.43 X 10*3/uL (1.80-7.70); Neutrophils % (A) 76.9 %; Platelet Count 245 X 10*3/uL (140-440); RBC 3.71 X 10*6/uL (4.40-5.60); WBC 5.76 X 10*3/uL (4.50-10.00)
[2022-09-01 09:22] LABS: African American GFR (CKD) 130.6 (60.0-200.0); Anion Gap 8.2 mmol/L (10.00-18.00); BUN/Creat Ratio 22.58 Ratio (12.00-20.00); Calcium 8.1 mg/dL (8.7-10.3); Carbon Dioxide 21.5 mmol/L (20.0-27.5); Non-African American GFR(CKD) 112.7 (60.0-200.0)
--- NOTE | 2022-09-01 14:59 | P.PN ---
Subjective Progress Note Date: 09/01/22 CHIEF COMPLAINT: Closed loop obstruction due to Meckel's diverticulum HISTORY OF PRESENT ILLNESS: The patient is a 37-year-old male status post small bowel resection of Meckel's diverticulum with closed loop obstruction and small bowel infarction. Family's bedside. He reports passing flatus. No bowel movements. He reports gastroesophageal reflux disease and mild nausea. Mother at bedside reports Kirk catheter and very dark of urine. NG tube was discontinued over the weekend. ROS: No bowel movements. No fevers or chills. No new chest pain. No productive sputum. PHYSICAL EXAM: VITAL SIGNS: Reviewed CONSTITUTIONAL: Well developed and in no acute distress. EYES: Conjuctivae without sclera icterus. Extraocular movements grossly intact. HEAD, EARS, NOSE, THROAT: Moist buccal mucosa. Head is atraumatic, normocephalic. Hears conversational speech. No nasal drainage. RESPIRATORY: Non-labored respirations and equal bilateral excursions. CARDIOVASCULAR: Palpable 2+ radial pulses. ABDOMEN: Incisional wound VAC dressing intact. MUSCULOSKELETAL: No gross deformity of the lower extremities noted. No clubbing. No cyanosis. SKIN: Good skin turgor. Well perfused. NEUROLOGIC: Cranial nerves II through XII grossly intact. No focal or lateralizing signs. PSYCH: Appropriate affect. Alert and oriented to person, place and time. CLINICAL LABS: Reviewed. CBC within normal limits. ASSESSMENT: 1. Small bowel infarction of Meckel's diverticulum due to close loop obst ruction 2. Hemorrhagic ascites 2.5 L with peritonitis 3. Dehydration PLAN: 1. Additional IV fluid boluses due to severe dehydration. 2. Currently, patient on full liquid diet. 3. Await bowel function. Objective - Vital Signs Vital signs: Vital Signs Temp 97.8 F 09/01/22 12:37 Pulse 52 L 09/01/22 12:37 Resp 17 09/01/22 12:37 BP 121/77 09/01/22 12:37 Pulse Ox 94 L 09/01/22 12:37 FiO2 Intake & Output 08/31/22 09/01/22 09/01/22 18:59 06:59 18:59 Intake Total 100 590 Output Total 1850 Balance 100 590 -1850 Intake: Intake, IV Titration 100 Amount ACETAMINOPHEN IV (For NPO 100 ) 1,000 mg In Empty Bag 1 bag @ 400 mls/hr IVPB Q6H [facility] Rx#:[id number] Oral 590 Output: Urine 1850 Other: Voiding Method Indwelling Catheter Indwelling Catheter Indwelling Catheter # Voids 1 # Bowel Movements 0 - Labs CBC & Chem 7: 09/01/22 05:37 09/01/22 05:37 Labs: Abnormal Lab Results - Last 24 Hours (Table) 09/01/22 09/01/22 Range/Units 05:37 05:37 RBC 3.71 L (4.40-5.60) X 10*6/uL Hgb 11.1 L (13.0-17.0) g/dL Hct 35.2 L (39.6-50.0) % MCHC 31.5 L (32.0-37.0) g/dL Immature Gran # 0.05 H (0.00-0.04) X 10*3/uL Lymphocytes # 0.73 L (0.90-5.00) X 10*3/uL Anion Gap 8.20 L (10.00-18.00) mmol/L BUN/Creatinine Ratio 22.58 H (12.00-20.00) Ratio Calcium 8.1 L (8.7-10.3) mg/dL Microbiology - Last 24 Hours (Table) 08/28/22 22:28 Anaerobic Culture - Preliminary Pleural Fluid 08/28/22 22:28 Gram Stain - Final Other - Other Wound Culture - Final
[2022-09-01] MEDS ORDERED: SCOPOLAMINE 1 MG/72 HR PATCH TRANSDERM STA (16:25)
[2022-09-01] MEDS: METOCLOPRAMIDE 5 MG/ML 2 ML VIAL IVP SCH ×2 (16:33→22:26)
[2022-09-01] MEDS: KETOROLAC 15 MG/ML 1 ML VIAL IVP SCH (16:33)
[2022-09-01] MEDS: HYDROmorphone 1 MG/ML 1 ML SYRINGE IVP PRN (19:53)
--- NOTE | 2022-09-01 20:16 | PN ---
PROGRESS NOTE DATE OF SERVICE: 09/01/2022 SUBJECTIVE: This is a 37-year-old gentleman who was admitted after exploratory laparotomy. He is also complaining of some postoperative pain. No chest pain, no palpitations, no fever. PHYSICAL EXAMINATION: VITAL SIGNS: Pulse is 67, blood pressure 108/57, respirations 16. CHEST: Clear to auscultation. CARDIOVASCULAR: S1, S2. ABDOMEN: Soft status post surgery. LABS: Hemoglobin 11.9, rest of the labs noted. ASSESSMENT: 1. Status post exploratory laparotomy and resection of small-bowel volvulus and Meckel's diverticulum. 2. Possible rib pain. 3. Leukopenia, improved. 4. History of vaping. RECOMMENDATIONS: Recommended to continue current medications, symptomatic treatment. Continue with DVT prophylaxis, otherwise pain management, closely follow with surgery. Further recommendations to follow. INCO / TERENCEN: [id number] /
[2022-09-02] MEDS: KETOROLAC 15 MG/ML 1 ML VIAL IVP SCH ×4 (00:03→18:14)
[2022-09-02] MEDS: HYDROmorphone 1 MG/ML 1 ML SYRINGE IVP PRN (00:04)
[2022-09-02] MEDS: metroNIDAZOLE-NS PMX 500 MG in SALINE 1 100ML.BAG IVPB SCH ×4 (00:05→18:15)
[2022-09-02] MEDS: LEVOFLOXACIN 500MG-D5W PMX 500 MG in DEXTROSE/WATER 1 100ML.BAG IVPB SCH (01:12)
[2022-09-02] MEDS: ACETAMINOPHEN IV (For NPO) 1,000 MG in EMPTY BAG 1 BAG IVPB SCH ×3 (04:10→15:36)
[2022-09-02] MEDS: METOCLOPRAMIDE 5 MG/ML 2 ML VIAL IVP SCH ×2 (04:10→11:12)
[2022-09-02] MEDS: SODIUM CHLORIDE 0.9% 1,000 ML IV SCH ×3 (04:14→18:39)
[2022-09-02 06:56] LABS: African American GFR (CKD) >90 (>60 ml/min/1.73 sqM); Anion Gap 1 mmol/L; Blood Urea Nitrogen 16 mg/dL (9-20); Calcium 7.5 mg/dL (8.4-10.2); Carbon Dioxide 22 mmol/L (22-30); Chloride 110 mmol/L (98-107); Glucose 100 mg/dL (74-99); Non-African American GFR(CKD) >90 (>60 ml/min/1.73 sqM); Potassium 3.5 mmol/L (3.5-5.1); Sodium 133 mmol/L (137-145)
[2022-09-02] MEDS ORDERED: POTASSIUM CHLORIDE ER 20 MEQ TAB.ER PO STA (08:45)
[2022-09-02] MEDS: PANTOPRAZOLE 40 MG/10 ML VIAL IV SCH (09:01)
[2022-09-02] MEDS: HEPARIN SODIUM,PORCINE/PF 5,000 UNIT/0.5 ML SYRINGE SQ SCH ×2 (09:01→21:38)
[2022-09-02 12:10] LABS: Magnesium 1.8 mg/dL (1.6-2.3); Phosphorus 2.4 mg/dL (2.5-4.5)
--- NOTE | 2022-09-02 13:28 | P.PN ---
Subjective Progress Note Date: 09/02/22 CHIEF COMPLAINT: Closed loop obstruction due to Meckel's diverticulum HISTORY OF PRESENT ILLNESS: The patient is a 37-year-old male status post small bowel resection of Meckel's diverticulum with closed loop obstruction and small bowel infarction. Patient did start having bowel movements last night. He denies any nausea or vomiting. He reports that his pain is controlled. He is currently on a full liquid diet. Afebrile. Sodium 133 potassium 3.5 creatinine 0.70 magnesium 1.8 phosphorus is 2.4 PHYSICAL EXAM: VITAL SIGNS: Reviewed GENERAL: Well-developed in no acute distress. HEENT: No sclera icterus. Extraocular movements grossly intact. Moist buccal mucosa. Head is atraumatic, normocephalic. Hears conversational speech. No nasal drainage. NECK: Supple without lymphadenopathy. CHEST: Non-labored respirations and equal bilateral excursions. CARDIOVASCULAR: Palpable 2+ radial pulses. ABDOMEN: Soft. Mildly distended. Prevena wound vac intact MUSCULOSKELETAL: No clubbing or cyanosis. NEUROLOGIC: No focal or lateralizing signs. Cranial nerves II through XII grossly intact. PSYCH: Appropriate affect. Alert and oriented to person, place and time. SKIN: Well perfused. Good skin turgor. ASSESSMENT: 1. Small bowel infarction of Meckel's diverticulum due to close loop obstruction status post small bowel resection 2. Hemorrhagic ascites 2.5 L with peritonitis 3. Dehydration PLAN: -Continue full liquid diet -Continue pain management -Continue IV fluids -Encouraged patient to use incentive spirometer -Encouraged patient to ambulate Physician Mud Logger note has been reviewed by physician. Signing provider agrees with the documented findings, assessment, and plan of care. Objective - Vital Signs Vital signs: Vital Signs Temp 98.1 F 09/02/22 12:18 Pulse 51 L 09/02/22 12:18 Resp 16 09/02/22 12:18 BP 129/77 09/02/22 12:18 Pulse Ox 91 L 09/02/22 12:18 FiO2 Intake & Output 09/01/22 09/02/22 09/02/22 18:59 06:59 18:59 Intake Total 3890 2260 Output Total 1850 Balance 2040 2260 Intake: Intake, IV Titration 3890 2260 Amount ACETAMINOPHEN IV (For NPO 800 300 ) 1,000 mg In Empty Bag 1 bag @ 400 mls/hr IVPB Q6H [facility] Rx#:[id number] Levofloxacin 500Mg-D5w 200 Pmx 500 mg In Dextrose/ Water 1 100ml.bag @ 100 mls/hr IVPB Q24H [facility] Rx#: [id number] Sodium Chloride 0.9% 1, 390 1560 000 ml @ 130 mls/hr IV . Q7H42M [facility] Rx#:[id number] Sodium Chloride 0.9% 1, 600 000 ml @ 75 mls/hr IV . [id number] [facility] Rx#:[id number] Sodium Chloride 0.9% 1, 2000 000 ml @ 999 mls/hr IV . Q1H1M [facility] Rx#:[id number] metroNIDAZOLE-NS PMX 500 100 200 mg In Saline 1 100ml.bag @ 100 mls/hr IVPB Q6HR [facility] Rx#:[id number] Output: Urine 1850 Other: Voiding Method Indwelling Catheter Indwelling Catheter # Voids 1 1 1 # Bowel Movements 1 1 1 - Labs CBC & Chem 7: 09/01/22 05:37 09/02/22 06:27 Labs: Abnormal Lab Results - Last 24 Hours (Table) 09/02/22 09/02/22 Range/Units 06:27 06:27 Sodium 133 L (137-145) mmol/L Chloride 110 H (98-107) mmol/L Glucose 100 H (74-99) mg/dL Calcium 7.5 L (8.4-10.2) mg/dL Phosphorus 2.4 L (2.5-4.5) mg/dL Microbiology - Last 24 Hours (Table) 08/28/22 22:28 Anaerobic Culture - Final Pleural Fluid
[2022-09-02] MEDS: ACETAMINOPHEN TAB 500 MG TAB PO SCH ×2 (16:41→21:38)
[2022-09-03] MEDS: metroNIDAZOLE-NS PMX 500 MG in SALINE 1 100ML.BAG IVPB SCH ×3 (00:07→13:30)
[2022-09-03] MEDS: KETOROLAC 15 MG/ML 1 ML VIAL IVP SCH ×3 (00:07→12:35)
[2022-09-03] MEDS: LEVOFLOXACIN 500MG-D5W PMX 500 MG in DEXTROSE/WATER 1 100ML.BAG IVPB SCH (01:10)
--- NOTE | 2022-09-03 03:02 | PN ---
PROGRESS NOTE DATE OF SERVICE: 09/02/2022 SUBJECTIVE: This is a 37-year-old gentleman who was admitted with exploratory laparotomy and resection of small bowel obstruction, improved significantly. NG tube is removed. No chest pain, no palpitations, no fever. OBJECTIVE: VITAL SIGNS: Pulse is 50, blood pressure 130/70, and respirations 18. HEENT: Conjunctivae normal. CARDIOVASCULAR: S1, S2. RESPIRATIONS: Diminished at the bases. ABDOMEN: Soft status post surgery. LABORATORY DATA: Reviewed, sodium 133. ASSESSMENT: 1. Status post exploratory laparotomy and resection of a small-bowel volvulus and Meckel's diverticulum. 2. Postoperative pain. 3. Leukopenia, improved. 4. Mild hyponatremia. RECOMMENDATIONS: Recommended to continue current management and symptomatic treatment, closely follow. Advance diet per surgery. Further recommendations to follow. MMODL / IJN: [id number] /
[2022-09-03] MEDS: ACETAMINOPHEN TAB 500 MG TAB PO SCH ×2 (04:17→10:58)
[2022-09-03] MEDS: SODIUM CHLORIDE 0.9% 1,000 ML IV SCH ×2 (04:19→05:57)
[2022-09-03 07:32] VITALS: RESP 17
[2022-09-03] MEDS: HEPARIN SODIUM,PORCINE/PF 5,000 UNIT/0.5 ML SYRINGE SQ SCH (08:23)
[2022-09-03] MEDS: PANTOPRAZOLE 40 MG/10 ML VIAL IV SCH (08:23)
[2022-09-03] MEDS ORDERED: POTASSIUM PHOSPHATE 10 MMOL in SODIUM CHLORIDE 0.9% 250 ML IV STA (08:47)
[2022-09-03] MEDS ORDERED: Phosphorus Replacement Protoco 1 EACH MISC MISCELLANE PRN (08:47)
[2022-09-03 10:24] LABS: African American GFR (CKD) 137.8 (60.0-200.0); Anion Gap 10.6 mmol/L (10.00-18.00); BUN/Creat Ratio 14.43 Ratio (12.00-20.00); Blood Urea Nitrogen 10.1 mg/dL (9.0-27.0); Calcium 7.9 mg/dL (8.7-10.3); Carbon Dioxide 22.4 mmol/L (20.0-27.5); Non-African American GFR(CKD) 118.9 (60.0-200.0); Potassium 3.4 mmol/L (3.5-5.5)
[2022-09-03 12:44] VITALS: BP 120/50; PULSE 65; TEMP 98.2
[2022-09-03 12:49] VITALS: BMI 22.7
--- NOTE | 2022-09-03 14:58 | P.DS ---
Providers Date of admission: 08/28/22 05:55 Expected date of discharge: 09/03/22 Attending physician: Bel Lamb Consults: 08/28/22 05:55 Consult Physician Routine Consulting Provider: [facility] Consult Reason/Comments: Anesthesia Care Do you want consulting provider notified?: Yes 08/29/22 00:17 Consult Physician Routine Consulting Provider: Delgado Helms Consult Reason/Comments: Medical management Do you want consulting provider notified?: Yes Primary care physician: Stated None Hospital Course: Discharge diagnosis 1. Closed loop small bowel obstruction, abnormal computed tomography scan 2. Hemoperitoneum with peritonitis 3. Small bowel ischemia 4. Small bowel volvulus due to Meckel's diverticulum 5. Meckel's diverticulum necrosis Hospital course The patient is a 37-year-old male who presents acutely with generalized abdominal pain rating to his back. Abnormal computed tomography scan demonstrated closed loop obstruction with internal hernia. Patient is status post Diagnostic laparoscopy converted to open exploratory laparotomy for reduction of small bowel volvulus, Drainage of hemoperitoneum, Small bowel resection, Meckel's diverticulum and Peritoneal lavage. Patient tolerated surgery well. His pain is controlled. He is tolerating diet. He is having bowel movements. He is afebrile. He has been up and ambulating. He is stable for discharge. Physician Store Cashier note has been reviewed by physician. Signing provider agrees with the documented findings, assessment, and plan of care. Patient Condition at Discharge: Stable Plan - Discharge Summary Discharge Rx Participant: No New Discharge Prescriptions: New Simethicone [Gas-X] 125 mg PO AC-TID PRN #20 capsule PRN Reason: Pain Ibuprofen [Motrin] 600 mg PO Q8HR PRN #30 tab PRN Reason: Pain Acetaminophen Tab [Tylenol Tab] 1,000 mg PO Q6HR PRN #30 tablet PRN Reason: Pain Cyclobenzaprine [Flexeril] 10 mg PO TID #30 tab Discharge Medication List Acetaminophen Tab [Tylenol Tab] 1,000 mg PO Q6HR PRN #30 tablet 09/03/22 [Rx] Cyclobenzaprine [Flexeril] 10 mg PO TID #30 tab 09/03/22 [Rx] Ibuprofen [Motrin] 600 mg PO Q8HR PRN #30 tab 09/03/22 [Rx] Simethicone [Gas-X] 125 mg PO AC-TID PRN #20 capsule 09/03/22 [Rx] Follow up Appointment(s)/Referral(s): Bel Lamb MD [STAFF PHYSICIAN] - 09/09/22 5:00 pm None,Stated [Primary Care Provider] - 1-2 Days Patient Instructions/Handouts: *Surgery [facility] - Managing Your Pain After Surgery Without Opioids, Low Fiber Diet (DC), Bowel Obstruction (DC), Abdominal Binder (DC), Bowel Resection (DC) Activity/Diet/Wound Care/Special Instructions: NO LIFTING OVER 4 POUNDS FOR 4 WEEKS, OCT 04, 2022 MAY SHOWER NO BATHTUB SOAKS HIGH PROTEIN OVER 90 TO 100GRAM DIET ADVISED FOR OPTIMAL RECOVERY LOW FIBER DIET Discharge Disposition: HOME SELF-CARE
--- NOTE | 2022-09-03 23:21 | PN ---
PROGRESS NOTE DATE OF SERVICE: 09/03/2022 SUBJECTIVE: This is a 37-year-old gentleman who was admitted with abdomen surgery, is improving significantly. No chest pain. No palpitations. No fever. OBJECTIVE: VITAL SIGNS: Pulse 54, blood pressure 131/80, respirations 16. CHEST: Clear to auscultation. CARDIOVASCULAR: S1, S2. ABDOMEN: Soft, status post surgery. LABORATORY DATA: Reviewed. ASSESSMENT: 1. Status post exploratory laparotomy and resection of small-bowel volvulus and Meckel's diverticulum. 2. Postoperative pain. 3. Leukopenia, improved. 4. Mild hyponatremia. RECOMMENDATIONS AND DISCUSSION: Recommend to continue current management and symptomatic treatment. Otherwise, supplement potassium. Follow up in the outpatient setting. Further recommendations to follow. MMODL / IJN: [id number] /
== END 2022-09-03 15:58 | disposition home or self-care (01) | DRG 329 ==
LOC: EC 03:59 → 4SSUR 05:55 → 5NMEDONC 07:59
PROVIDERS: ADMIT Surgery Plastic and Reconstructive Surgery; ATTEND Surgery Plastic and Reconstructive Surgery
PROC: 0DT80ZZ Resection of Small Intestine, Open Approach (ICD-10-PCS; 2022-08-28)
PROC: 0W9G0ZZ Drainage of Peritoneal Cavity, Open Approach (ICD-10-PCS; 2022-08-28)
PROC: 3E1M38Z Irrigation of Peritoneal Cavity using Irrigating Substance, Percutaneous Approach (ICD-10-PCS; 2022-08-28)
PROC: 8E0W0CZ Robotic Assisted Procedure of Trunk Region, Open Approach (ICD-10-PCS; 2022-08-28)
PROC: 0DS80ZZ Reposition Small Intestine, Open Approach (ICD-10-PCS; principal; 2022-08-28 15:15)
DX: K55.029 Acute infarction of small intestine, extent unspecified (principal); K28.6 Chronic or unspecified gastrojejunal ulcer with both hemorrhage and perforation; K66.1 Hemoperitoneum; K56.2 Volvulus; K65.9 Peritonitis, unspecified; R18.8 Other ascites; K46.0 Unspecified abdominal hernia with obstruction, without gangrene; E87.1 Hypo-osmolality and hyponatremia; Z53.31 Laparoscopic surgical procedure converted to open procedure; Q43.0 Meckel's diverticulum (displaced) (hypertrophic); E86.0 Dehydration; K21.9 Gastro-esophageal reflux disease without esophagitis; D72.819 Decreased white blood cell count, unspecified; G89.18 Other acute postprocedural pain; Z88.0 Allergy status to penicillin; Z87.891 Personal history of nicotine dependence
CPT/HCPCS: 36415; 74177; 80048; 80053; 80306; 80320; 81001; 83690; 83735; 84100; 85025; 87070; 87075; 87205; 88304; 93005; 94760; 96360; 99285

== ENCOUNTER 2022-09-05 16:25 | Emergency (ER) | payer BC ==
[2022-09-05 17:13] VITALS: BP 165/82; PULSE 83; RESP 20; TEMP 99.4
--- NOTE | 2022-09-05 17:49 | XR ---
EXAMINATION TYPE: XR chest 2V DATE OF EXAM: 09/05/2022 5:26 PM COMPARISON: None TECHNIQUE: XR chest 2V Frontal and lateral views of the chest. CLINICAL INDICATION:Male, 37 years old with history of cough fever; FINDINGS: Lungs/Pleura: Blunting of the posterior costophrenic angles with airspace opacities present on the ri ght lung base. Pulmonary vascularity: Unremarkable. Heart/mediastinum: Cardiomediastinal silhouette is unremarkable. Musculoskeletal: No acute osseous pathology. IMPRESSION: Blunting of the posterior costophrenic angles with suggestion of lower lobe consolidation on the righ t. Consider further evaluation with CT as clinically warranted. Findings suggest pneumonia.
[2022-09-05] MEDS ORDERED: AZITHROMYCIN 500 MG TAB PO STA (19:52)
[2022-09-05] MEDS ORDERED: ACETAMINOPHEN TAB 500 MG TAB PO STA (19:53)
--- NOTE | 2022-09-05 19:55 | ED ---
General Adult HPI - General Chief complaint: Upper Respiratory Infection Stated complaint: post surg/Fever Time Seen by Provider: 09/05/22 18:52 Source: patient, RN notes reviewed, old records reviewed Mode of arrival: ambulatory Limitations: no limitations - History of Present Illness Initial comments: Patient is a 37-year-old male who presents in the department complaining of upper respiratory symptoms for the last few days. Has had nasal congestion, mildly productive cough, fevers. Recently had abdominal surgery with Dr. Lamb. Denies any abdominal complaints including new pain, infection, nausea, vomiting, diarrhea. Only symptomatic complaints at this time or upper respiratory cough, his feet as well as fevers. Has been using his incentive spirometer at home with symptoms starting a few days ago. Primary complaint is postnasal drainage. Presents for further evaluation at this time. No known sick contacts. Fevers are controlled with Tylenol. - Related Data Previous Rx's Medication Instructions Recorded Acetaminophen Tab [Tylenol Tab] 1,000 mg PO Q6HR PRN #30 tablet 09/03/22 Cyclobenzaprine [Flexeril] 10 mg PO TID #30 tab 09/03/22 Ibuprofen [Motrin] 600 mg PO Q8HR PRN #30 tab 09/03/22 Simethicone [Gas-X] 125 mg PO AC-TID PRN #20 capsule 09/03/22 Azithromycin [Zithromax] 250 mg PO DAILY 4 Days #4 tab 09/05/22 Allergies Allergy/AdvReac Type Severity Reaction Status Date / Time Penicillins Allergy Unknown Verified 08/28/22 08:37 Childhood Review of Systems ROS Statement: Those systems with pertinent positive or pertinent negative responses have been documented in the HPI. Review of Systems: CONST: Endorses fever EYES: Denies blurry vision ENT: Endorses nasal congestion C/V: Denies Chest pain RESP: Endorses cough GI: Denies abdominal pain : Denies dysuria SKIN: Denies rash. MSK: Denies joint pain. NEURO: Denies headache ROS Other: All systems not noted in ROS Statement are negative. Past Medical History Past Medical History: No Reported History History of Any Multi-Drug Resistant Organisms: None Reported Past Surgical History: No Surgical Hx Reported Additional Past Surgical History / Comment(s): [place] teeth extractions. Additional Past Anesthesia/Blood Transfusion Reaction / Comment(s): Pt has never had general or spinal anesthesia. Past Psychological History: No Psychological Hx Reported Smoking Status: Vaper - Past Family History Mother Family Medical History: No Reported History Father Family Medical History: No Reported History General Exam - General Exam Comments Initial Comments: General: Appears in no acute distress. HEAD: Normal with no signs of head trauma. EYES: PERRLA, EOMI, conjunctiva normal, no discharge. ENT: Hearing grossly intact, normal oropharynx. RESPIRATORY: Clear breath sounds bilaterally. No wheezes, rales, or rhonchi. No hypoxia. No respiratory distress C/V: Regular rate and rhythm. S1 and S2 auscultated, no edema, peripheral pulses 2+ and intact throughout ABD: Abd is soft, nontender, nondistended. No guarding, no peritoneal signs, no rebound tenderness. EXT: Normal range of motion, no obvious deformity SKIN: Surgical incision his dressing, but no obvious skin changes or findings concerning for acute infection. NEURO: Alert and oriented 4. Limitations: no limitations Course Vital Signs 09/05/22 17:09 Temperature 99.4 F Pulse Rate 83 Respiratory 20 Rate Blood Pressure 165/82 O2 Sat by Pulse 96 Oximetry Medical Decision Making - Medical Decision Making Was pt. sent in by a medical professional or institution? @ -No Did you speak to anyone other than the patient for history? @ -Yes, patient and family. Did you review nursing and triage notes? @ -Yes. I agree except there is no abdominal discomfort. Patient has no tenderness despite recent surgery. Only complaint is upper respiratory infection related. Were old charts reviewed? @ -Yes. Previous admission. Differential Diagnosis? @ -Pneumonia, viral infection, sinusitis, upper respiratory infection. This is not an all inclusive differential list. EKG interpreted by me (3pts min.)? @ -none X-rays interpreted by me (1pt min.)? @ -Yes. Chest x-ray reveals right lower lobe consolidation concerning for pneumonia. CT interpreted by me (1pt min.)? @ -none U/S interpreted by me (1pt. min.)? @ -none What testing was considered but not performed? (CT, X-rays, U/S, labs)? Why? @None What meds were considered but not given? Why? @ -none Did you discuss the management of the patient with other professionals? @ -Yes. Patient's surgeon Dr. Lamb who was in agreement with the plan for antibiotics. Will follow-up with her outpatient. Did you reconcile home meds? @ -Yes Was smoking cessation discussed for >3mins.? @ -none Was critical care preformed (if so, how long)? @ -none Were there social determinants of health that impacted care today? How? (Homelessness, low income, unemployed, alcoholism, drug addiction, transportation, low edu. Level, literacy, decrease access to med. care, halfway, rehab)? @ -None Was there de-escalation of care discussed even if they declined? (Discuss DNR or withdrawal of care, Hospice)? @ -None What co-morbidities impacted this encounter? (DM, HTN, Smoking, COPD, CAD, Cancer, CVA, Hep., AIDS, mental health diagnosis, sleep apnea, morbid obesity)? @ -None Was patient admitted / discharged? @ -Based on the patient's presentation and physical exam, there is concern for upper respiratory infection. Cannot rule out Covid, flu, RSV or pneumonia. Vital signs are within acceptable limits. No abdominal complaints despite the recent surgery. We did obtain viral swabs as well as chest x-ray prior to me evaluating the patient. It was positive for influenza as well as concerning findings for a right lower lobe pneumonia. I discussed the workup with the patient. Due to the possible pneumonia, he will be started on azithromycin. He was in agreement with this plan. He requested that I speak with his surgeon, Dr. Lamb prior to prescribing him a medication. I did do this and she was in agreement with plan. Patient will follow-up with her next week. There is no concern for intra-abdominal infection at this time as he has no abdominal symptoms. All of his symptoms are upper respiratory nature. I will provide the patient with a prescription for azithromycin. I instructed the patient to follow up with their PCP in the next 1-3 days. I explained that the patient should return to the emergency department if they experience any worsening symptoms. Strict return precautions were discussed with the patient. The patient expressed understanding of these instructions. I answered all questions that the patient had. The patient was discharged home in good condition with their prescriptions and follow up information. Undiagnosed new problem with uncertain prognosis? @ -Acute pneumonia, influenza infection Drug Therapy requiring intensive monitoring for toxicity (Heparin, Nitro, Insulin, Cardizem)? @ -none Were any procedures done? @ -none Diagnosis/symptom? @ -Acute pneumonia, influenza infection Acute, or Chronic, or Acute on Chronic? @ -Acute Uncomplicated (without systemic symptoms) or Complicated (systemic symptoms)? @ -Uncomplicated Side effects of treatment? @ -none Exacerbation, Progression, or Severe Exacerbation] @ -no Poses a threat to life or bodily function? @ -no - Lab Data Lab Results 09/05/22 Range/Units 17:18 Influenza Type A (PCR) Detected A (Not Detectd) Influenza Type B (PCR) Not Detected (Not Detectd) RSV (PCR) Not Detected (Not Detectd) SARS-CoV-2 (PCR) Not Detected (Not Detectd) Disposition Clinical Impression: Influenza, Pneumonia Disposition: HOME SELF-CARE Condition: Good Instructions (If sedation given, give patient instructions): Influenza (ED), Upper Respiratory Infection (ED), Community Acquired Pneumonia (ED) Prescriptions: Azithromycin [Zithromax] 250 mg PO DAILY 4 Days #4 tab Is patient prescribed a controlled substance at d/c from ED?: No Referrals: Shalom Vasquez MD [Primary Care Provider] - 1-2 days Time of Disposition: 19:40
== END 2022-09-05 20:06 | disposition home or self-care (01) ==
LOC: EC 16:25
DX: J10.1 Influenza due to other identified influenza virus with other respiratory manifestations (principal); J18.9 Pneumonia, unspecified organism; F17.290 Nicotine dependence, other tobacco product, uncomplicated; Z20.822 Contact with and (suspected) exposure to COVID-19; Z88.0 Allergy status to penicillin
CPT/HCPCS: 71046; 87636; 99284